=== PATIENT | male | born 1990 | race Hispanic/Latino ===

== ENCOUNTER 2021-06-01 00:37 | Emergency (ER) | payer OTHER ==
[~2021-06-01] VITALS: Ht 154.9 cm; Wt 90.7 kg
[2021-06-01 01:24] LABS: BASOPHILS % (AUTO) 0.6 % (0.0-5.0); HEMATOCRIT 43.4 % (42-54); LYMPHOCYTES % (AUTO) 24.1 % (21.0-51.0); MEAN CORPUSCULAR HEMOGLOBIN 30.9 pg (27.0-33.0); MEAN CORPUSCULAR HGB CONC 34.3 g/dL (32.0-36.0); MONOCYTES % (AUTO) 9.1 % (3.0-13.0); NEUTROPHILS % (AUTO) 62.9 % (40.0-77.0); PLATELET COUNT (AUTO) 212 K/uL (130-400); RED BLOOD CELL COUNT(AUTO) 4.82 MIL/uL (4.50-6.20); RED CELL DISTRIBUTION WIDTH 11.7 % (11.0-15.5); WHITE BLOOD COUNT (AUTO) 11.1 K/uL (4.8-10.8)
[2021-06-01 01:26] LABS: APPEARANCE,URINE Clear (CLEAR); BILIRUBIN,URINE Negative (NEGATIVE); COLOR,URINE Yellow (YELLOW); GLUCOSE, URINE (UA) >=1000 mg/dL (NEGATIVE); KETONES,URINE Trace mg/dL (NEGATIVE); LEUKOCYTE ESTERASE ,URINE Negative (NEGATIVE); NITRATE,URINE Negative (NEGATIVE); OCCULT BLOOD,URINE Large (NEGATIVE); PROTEIN,URINE Negative (NEGATIVE)
[2021-06-01 01:39] LABS: CREATININE 1.1 mg/dL (0.5-1.5); POTASSIUM 3.8 mmol/L (3.5-5.1)
[2021-06-01 01:43] LABS: ALBUMIN 3.9 g/dL (3.5-5.0); BILIRUBIN,TOTAL 0.4 mg/dL (0.2-1.0); TOTAL PROTEIN, SERUM 7.6 g/dL (6.0-8.3)
[2021-06-01 01:54] LABS: BACTERIA,URINE None Seen /HPF (None Seen); RBC,URINE 26-50 /HPF (0-1); SQUAMOUS EPITHELIAL CELL,UR Rare /HPF (0-2); WBC,URINE 0-1 /HPF (0-1)
[2021-06-01 01:55] LABS: MUCUS,URINE Few LPF (None Seen)
[2021-06-01] MEDS ORDERED: KETOROLAC 30MG VIAL (30MG/ML) ONE (02:57)
[2021-06-01] MEDS ORDERED: 0.9%NACL 1000ML 1,000 ML IV ONE (03:00)
[2021-06-01] MEDS ORDERED: KETOROLAC 30MG VIAL (30MG/ML) IV ONE (03:00)
[2021-06-01] MEDS ORDERED: MELO7.5T12 PO (03:51)
[2021-06-01] MEDS ORDERED: DICY20TA2 PO (03:51)
[2021-06-01] MEDS ORDERED: METO-296 PO (03:51)
[2021-06-01] MEDS ORDERED: ACET1TAB25 PO (03:51)
[2021-06-01] MEDS ORDERED: ONDA4TAB10 PO (03:51)
[2021-06-01] MEDS ORDERED: TAMS-1 PO (03:51)
[2021-06-01] MEDS ORDERED: DICYCLOMINE HCL 20 MG TAB PO ONE (04:00)
[2021-06-01] MEDS ORDERED: TAMSULOSIN HCL 0.4 MG CAP.ER.24H PO ONE (04:00)
[2021-06-01 04:20] VITALS: BP 127/77
== END 2021-06-01 04:22 | disposition home or self-care (01) ==
LOC: EDH 00:37
DX: N13.2 Hydronephrosis with renal and ureteral calculous obstruction (principal); E86.9 Volume depletion, unspecified; Z79.1 Long term (current) use of non-steroidal anti-inflammatories (NSAID); Z87.442 Personal history of urinary calculi
CPT/HCPCS: 36415; 74176; 80053; 81001; 83690; 85025; 96361; 96374; 99284; J1885; J7030